=== PATIENT | female | born 1970 | race Caucasian/White ===

== ENCOUNTER 2016-12-18 16:41 | Emergency (ER) | payer BC ==
--- NOTE | 2016-12-18 17:19 | UC ---
Respiratory Complaint HPI - HPI Summary HPI Summary: 46 YEAR OLD FEMALE PRESENTS WITH CLAIMS OF COUGH, CHEST CONGESTION AND FEVER. - History of Current Complaint Stated Complaint: DEEP COUGH/CHEST CONGESTION Time Seen by Provider: 12/18/16 17:15 Hx Obtained From: Patient Hx Last Menstrual Period: 01/2016 ?: Yes Onset/Duration: Sudden Onset Timing: Constant Severity Initially: Moderate Severity Currently: Moderate Pain Scale Used: 0-10 Numeric - 5 - Allergies/Home Medications Allergies/Adverse Reactions: Allergies Allergy/AdvReac Type Severity Reaction Status Date / Time Amoxicillin Allergy Unknown Verified 12/18/16 17:15 Reaction Details mold,dust Allergy Congestion Uncoded 12/18/16 17:15 Home Medications: Home Medications Naproxen [Naproxen 500 MG TABS] 500 mg PO BID PRN 12/18/16 [History Confirmed ] PMH/Surg Hx/FS Hx/Imm Hx Previously Healthy: Yes - Surgical History Surgical History: Yes Surgery Procedure, Year, and Place: X2. Gallbladder - Family History Known Family History: Negative: Cardiac Disease, Hypertension, Diabetes - Social History Alcohol Use: Occasionally Substance Use Type: None Smoking Status (MU): Never Smoked Tobacco - Immunization History Most Recent Tetanus Shot: greater than 10 years ago Review of Systems Constitutional: Negative Skin: Negative Eyes: Negative ENT: Sore Throat, Nasal Discharge, Sinus Congestion, Sinus Pain/Tenderness Respiratory: Cough Cardiovascular: Negative Gastrointestinal: Negative Genitourinary: Negative Motor: Negative Neurovascular: Negative Musculoskeletal: Negative Neurological: Negative Psychological: Negative All Other Systems Reviewed And Are Negative: Yes Physical Exam Triage Information Reviewed: Yes Eye Exam: Normal ENT: Positive: Nasal congestion, Tonsillar swelling Dental Exam: Normal Neck exam: Normal Neck: Positive: 1 Respiratory: Positive: Rhonchi, Wheezing Cardiovascular Exam: Normal Abdominal Exam: Normal Musculoskeletal Exam: Normal Neurological Exam: Normal Psychological Exam: Normal Skin Exam: Normal Respiratory Course/Dx - Differential Dx/Diagnosis Provider Diagnoses: BONCHITIS. WHEEZING Discharge - Discharge Plan Condition: Stable Disposition: HOME Prescriptions: Albuterol HFA INHALER* [Ventolin HFA Inhaler*] 1 puff INH Q6H PRN #1 mdi PRN Reason: Wheezing Azithromyxin LACI (NF) [Z-Laci (Zithromax) 250 mg tabs #6] 2 tab PO .TODAY, THEN 1 DAILY #6 tab LoraTADine TAB(NF) [Claritin 10 MG TAB(NF)] 10 mg PO DAILY #30 tab guaiFENesin/CODIEN 100MG-10MG* [Robitussin AC 100Mg-10Mg*] 5 ml PO Q6H PRN #120 udc MDD 20 ML PRN Reason: Cough Patient Education Materials: Allergic Rhinitis (ED) Referrals: Non Staff,Doctor [Medical Doctor] - Additional Instructions: PLEASE F/U WITH PCP FOR ELEVATED BLOOD PRESSURE.
[2016-12-18 17:26] VITALS: BP 151/101
== END 2016-12-18 17:35 | disposition home or self-care (01) ==
LOC: UCCORT 16:41
DX: J40 Bronchitis, not specified as acute or chronic (principal); Z90.49 Acquired absence of other specified parts of digestive tract; Z88.1 Allergy status to other antibiotic agents
CPT/HCPCS: 99212; G0463